=== PATIENT | male | born 1985 | race Caucasian/White ===

== ENCOUNTER 2017-07-21 05:49 | Day surgery (SDC) | payer OTHER, SELFPAY ==
[2017-07-21] VITALS (8 sets, daily range): BP systolic 115–138; BP diastolic 57–86; PULSE 52–67; RESP 16; TEMP 36.1–36.5; O2SAT 95–100; BMI 36.3
--- NOTE | 2017-07-21 06:14 | EKG12_ITS ---
Test Reason : PRE-OP Blood Pressure : / mmHG Vent. Rate : 055 BPM Atrial Rate : 055 BPM P-R Int : 160 ms QRS Dur : 092 ms QT Int : 394 ms P-R-T Axes : 017 033 050 degrees QTc Int : 376 ms Sinus bradycardia with sinus arrhythmia Otherwise normal ECG No previous ECGs available Confirmed by ALKO RAMEY, ANTHONY ([id number]), editor farm journal TERESITA CUEVA ([id number]) on 07/25/2017 3:58:10 PM Referred By: Harjit Moreno Confirmed By:ANTHONY DICKINSON MD
[2017-07-21 06:42] LABS: Anion Gap 4 (5-15); BUN 12 mg/dL (7-18); BUN/Creat Ratio 10.5 RATIO (10-20); Calcium,Total 8.7 mg/dL (8.5-10.1); Chloride 107 mmol/L (98-107); Creatinine, Serum 1.14 mg/dL (0.70-1.30); EST Glomerular Filtration Rate 79 mL/min (>60); Est Glom Filt Rate - Afr Amer 96 mL/min (>60); Estimated Creatinine Clearance 105.13 ml/min; Glucose 88 mg/dL (74-106); Potassium 4.1 mmol/L (3.5-5.1); Sodium Level 140 mmol/L (136-145)
[2017-07-21 06:44] LABS: Hematocrit 46.9 % (40-54); Hemoglobin 16.6 g/dl (13.0-16.5); Mean Corp Hgb Conc 35.4 g/gl (32-36); Mean Corpuscular Hgb 31.6 pg (27.0-32.0); Mean Corpuscular Volume 89.2 fL (80-94); Mean Platelet Vol. 10.5 fl (6.2-12.0); Platelet Count 172 K/mm3 (150-450); RBC Distribution Width CV 12.3 % (11.6-14.6); RBC Distribution Width SD 39.9 fl (35.1-43.9); Red Blood Count 5.26 M/mm3 (4.6-6.2); White Blood Count 5.8 K/mm3 (4.4-11.0)
[2017-07-21 06:45] LABS: Scan Indicated on CBC? Y/N NO
[2017-07-21] MEDS: BUPIVACAINE LIPOSOME/PF 20 ML VIAL OPERA.SITE (06:50)
--- NOTE | 2017-07-21 07:03 | PCM.DC.REC ---
Discharge Diet: No Restrictions Discharge Activity: Return to Normal Activity, May Not Drive - while you are taking narcotic pain medications. Do not drive, work with heavy equipment or sign legal documents for 24 hours after your surgery., May Shower, May Take a Tub Bath Additional Activity Instructions:: No heavy lifting or straining more than 10 pounds. You may remove the Vaseline gauze dressing tomorrow morning or with any bowel movement prior to that. You may utilize the dibucaine ointment every 2 hours as needed for comfort Additional Dressing/Incision Instructions:: You may take mineral oil 30 cc or 1 else in juice or food daily for 1 week. I encouraged to utilization of sitz baths in warm soapy water as needed for comfort and hygiene. You may utilize absorptive pads for any drainage Allergies/Adverse Reactions: Allergies No Known Allergies Allergy (Verified 07/17/17 15:10) Medications to take at Discharge Hydrocodone Bitart/Apap 5-325 [[place] 5MG-325MG] 1 tab PO Q4H PRN PRN 4 Days #20 tab 07/21/17 Hydrocortisone [Proctozone-Hc] 30 gm TP Q4H PRN PRN #1 crm.[email or web address] 07/21/17 Metronidazole 250 mg PO TID #15 tab 07/21/17 The following prescriptions were given: Hydrocodone Bitart/Apap 5-325 [[place] 5MG-325MG] 1 tab PO Q4H PRN PRN 4 Days #20 tab PRN Reason: Pain Hydrocortisone [Proctozone-Hc] 30 gm TP Q4H PRN PRN #1 crm.[email or web address] PRN Reason: Pain Metronidazole 250 mg PO TID #15 tab Primary Care Physician: Harjit Gomez MD [Primary Care Provider] - Please Follow Up With: Harjit Moreno MD - [phone] When: Plan to have a follow up approximately 3 weekss after surgery.
[2017-07-21] MEDS: Cefazolin 2 GM in 0.9% Normal Saline 100 ML IV (07:06)
--- NOTE | 2017-07-21 07:06 | DCINST_ITS ---
Discharge Diet: No Restrictions Discharge Activity: Return to Normal Activity, May Not Drive - while you are taking narcotic pain medications. Do not drive, work with heavy equipment or sign legal documents for 24 hours after your surgery., May Shower, May Take a Tub Bath Additional Activity Instructions:: No heavy lifting or straining more than 10 pounds. You may remove the Vaseline gauze dressing tomorrow morning or with any bowel movement prior to that. You may utilize the dibucaine ointment every 2 hours as needed for comfort Additional Dressing/Incision Instructions:: You may take mineral oil 30 cc or 1 else in juice or food daily for 1 week. I encouraged to utilization of sitz baths in warm soapy water as needed for comfort and hygiene. You may utilize absorptive pads for any drainage Allergies/Adverse Reactions: Allergies No Known Allergies Allergy (Verified 07/17/17 15:10) Medications to take at Discharge Hydrocodone Bitart/Apap 5-325 [[place] 5MG-325MG] 1 tab PO Q4H PRN PRN 4 Days #20 tab 07/21/17 Hydrocortisone [Proctozone-Hc] 30 gm TP Q4H PRN PRN #1 crm.pe.ewa 07/21/17 Metronidazole 250 mg PO TID #15 tab 07/21/17 The following prescriptions were given: Hydrocodone Bitart/Apap 5-325 [[place] 5MG-325MG] 1 tab PO Q4H PRN PRN 4 Days #20 tab PRN Reason: Pain Hydrocortisone [Proctozone-Hc] 30 gm TP Q4H PRN PRN #1 crm.pe.ewa PRN Reason: Pain Metronidazole 250 mg PO TID #15 tab Primary Care Physician: Harjit Gomez MD [Primary Care Provider] - Please Follow Up With: Harjit Moreno MD - [phone] When: Plan to have a follow up approximately 3 weekss after surgery.
[2017-07-21] MEDS: Lubricating Jelly 60 GM Tube 30 GM TOPICAL (07:15)
--- NOTE | 2017-07-21 07:15 | HEM_PTH ---
PATIENT: ANTONIO MONTERO LOC: [facility] [place] U#:[id number] AGE/SX: 32/M ROOM: RE07/21/[address]: Dr. Harjit Moreno MD : 1985 BED: DIS: 07/21/2017 SPEC #: [id number] RECD: 07/21/17 09:18 STATUS: EUNICE GALINDO #: [id number] ABRAM: 07/21/17 07:[address]: Harjit Moreno DEPT: SURGICAL PATHOLOGY RECD BY: Jacob Vaughn ENTERED: 07/21/17 10:33 SP TYPE: HEMORRHOID OTHR DR: Dr. Harjit Gomez MD Tissues: HEMORRHOIDS Procedures: Surgery Specimen Level III HEADER OPERATION: Colonoscopy, rectal exam under anesthesia, hemorrhoidectomy PRE-OP DIAGNOSIS: Rectal bleeding TISSUE SUBMITTED: Hemorrhoids MICROSCOPIC DIAGNOSIS Hemorrhoids: Fragments of anorectal mucosa with dilated and congested blood vessels, consistent with hemorrhoids. SJ:malvin 07/22/17 MICROSCOPIC DESCRIPTION Slides are reviewed. GROSS DESCRIPTION Received in fixative is one container labeled with the patient's name and designated hemorrhoids. The specimen consists of four variable size pieces of pink mucosal tissue that in aggregate measure 3 x 3 x 1 cm. Sections reveal congested and hemorrhagic cut surfaces. [employer] sections are submitted in one cassette. / SJ:malvin 07/21/17 TC:5 CPT: 78067
[2017-07-21] MEDS: Dibucaine 30 GM Tube 1 APPLIC (08:00)
[2017-07-21] MEDS: Bupivacaine Mpf 0.5% 30 ML VIAL (08:02)
--- NOTE | 2017-07-21 08:07 | PCM.OPRPT ---
Problem List (1) Rectal bleeding Status: Acute Report of Operation Date of Procedure: 07/21/17 Pre-Operative Diagnosis: Rectal bleeding Post-Operative Diagnosis: Rectal bleeding. Normal colonoscopy. Grade 2-3 internal and external hemorrhoids Surgery/Procedure Performed:: colonoscopy. Hemorrhoidectomy Description of Surgical Findings:: Timeout and informed consent was obtained. 32-year-old gentleman was taken to the operating room. He was placed in left lateral decubitus position. He underwent monitored anesthesia care. Digital rectal exam performed demonstrated significant internal hemorrhoids. 2+ smooth prostate. Flexible colonoscope was in the rectum and readily advanced to the sigmoid colon descending colon transverse colon and with transabdominal pressure was advanced to the ascending colon to the cecum. Bowel prep was very good. The cecum ileocecal valve area was nicely achieved. Photograph was obtained. The scope was carefully withdrawn from the ascending transverse descending and sigmoid colon without abnormality. There were no locations of bleeding at that location. The scope was retroflexed within the rectum and notable internal hemorrhoids identified. Excess fluid and air was aspirated free the procedure was completed with the patient tolerating it well The patient then was placed prone jackknife. The sonia-anal area was prepped and draped. 0.5% Marcaine mixed with 20 cc of Exparel was used as a local anesthetic. Throughout the procedure total of 20 cc of Exparel diluted with the 20 cc of Exparel totaling 40 cc was used. The perianal tissue was anesthetized. There was exuberant fragile hemorrhoid particularly left lateral. Slightly small amount right lateral. There were internal hemorrhoids also noted anteriorly and posteriorly. The right and left lateral hemorrhoids were treated with apical sutures of 2-0 chromic and then harmonic scalpel was used to excise these. The mucosa was approximated with a running locking 2-0 chromic. Harmonic Scalpel was used to excise the internal disease anterior and posteriorly. Digital palpation revealed that the vast majority of the tissue had been removed. Patient was nicely patent. Hemostasis was intact. On visual inspection I felt that I removed the symptomatic disease. A Vaseline gauze lubricated with lidocaine was inserted. Cover dry dressings applied. Sponge and instrument and needle counts were reported to the surgeon be correct. Blood loss was minimal. Impression No history of previous colonoscopy. This colonoscopy was felt to be normal. Next screening colonoscopy anticipated at age 50. Hemorrhoids treated surgically. It is felt that the hemorrhoids were the source of the rectal bleeding. Specimens hemorrhoids. Drains none. Blood loss minimal. Colonoscopy was started at 0714. The cecum was reached at 0717.38. The procedure was completed at 0723. Harjit Moreno M.D., F.A.C.S. Type of Anesthesia:: MAC
== END 2017-07-21 10:48 | disposition home or self-care (01) ==
LOC: SDC 05:50 → AC 05:51
PROVIDERS: Family Provider Family Medicine; PCP Family Medicine; Visit Provider Surgery
PROC: (CPT 45378; principal; 2017-07-21 07:00)
DX: K64.1 Second degree hemorrhoids (principal); K64.2 Third degree hemorrhoids; M54.9 Dorsalgia, unspecified; G89.29 Other chronic pain
CPT/HCPCS: 00902; 45378; 46260; 36415; 80048; 85027; 88304; 93005; J7120; A4216; J2405

== ENCOUNTER → 2020-12-15 | Outpatient (CLI) | payer OTHER, SELFPAY ==
--- NOTE | 2020-12-15 16:00 | VAS_PTH ---
PATIENT: ANTONIO MONTERO LOC: [facility]#:[id number] AGE/SX: 35/M ROOM: RE12/15/[address]: Dr. Harjit Moreno MD : 1985 BED: DIS: 12/15/2020 SPEC #: [id number] RECD: 12/18/20 10:36 STATUS: EUNICE JOSIE #: [id number] ABRAM: 12/15/20 16:[address]: Harjit Moreno DEPT: SURGICAL PATHOLOGY RECD BY: Michell Flores ENTERED: 12/19/20 09:01 SP TYPE: VAS OTHR DR: Dr. Harjit Gomez MD Tissues: A - Vas deferens, NOS B - Vas deferens, NOS Procedures: Surgery Specimen Level II HEADER OPERATION: Bilateral partial vasectomy PRE-OP DIAGNOSIS: Sterilization TISSUE SUBMITTED: A ? Right vas deferens, B ? Left vas deferens MICROSCOPIC DIAGNOSIS A. Right vas deferens, vasectomy: Complete segment of vas deferens with no pathologic change. B. Left vas deferens, vasectomy: Complete segment of vas deferens with no pathologic change. AM:malvin 12/19/2020 MICROSCOPIC DESCRIPTION Slides are reviewed. GROSS DESCRIPTION A - Received is one container designated right vas deferens. The specimen consists of a cylindrical segment of pink-lovell soft tissue measuring 1.4 cm in length and 0.2 cm in maximum diameter. The specimen is serially sectioned and totally submitted in one cassette. B - Received is one container designated left vas deferens. The specimen consists of a cylindrical segment of pink-lovell soft tissue measuring 1.6 cm in length and 0.2 cm in maximum diameter. The specimen is serially sectioned and totally submitted in one cassette. / AM:malvin 12/18/20 TC:4 [facility]: [id number] x2
== END | disposition home or self-care (01) ==
LOC: LABSPEC 12-19 08:57
PROVIDERS: PCP Family Medicine; Visit Provider Surgery
DX: Z30.2 Encounter for sterilization (principal)
CPT/HCPCS: 88302

== ENCOUNTER 2021-04-04 15:12 | Outpatient (CLI) | payer BC, SELFPAY ==
[2021-04-05 12:58] LABS: Semen Analysis Post Vas REVIEWED
== END 2021-04-04 23:59 | disposition short-term general hospital (02) ==
PROVIDERS: PCP Family Medicine; Visit Provider Surgery
DX: Z30.2 Encounter for sterilization (principal)
CPT/HCPCS: 89321

== ENCOUNTER 2021-07-06 15:34 | Outpatient (CLI) | payer BC, SELFPAY ==
[2021-07-06 19:32] LABS: Semen Analysis Post Vas ABSENT
[2021-07-09 12:38] LABS: Pathologist Review Reviewed
== END 2021-07-06 23:59 | disposition home or self-care (01) ==
LOC: LAB 15:36
PROVIDERS: PCP Family Medicine; Referring Provider Surgery; Visit Provider Surgery
DX: Z30.2 Encounter for sterilization (principal)
CPT/HCPCS: 89321